=== PATIENT | female | born 1995 | race Caucasian/White ===

== ENCOUNTER 2017-10-31 14:49 | Emergency (ER) | payer BC ==
[~2017-10-31] VITALS: Ht 167.6 cm; Wt 63.5 kg
[2017-10-31] MEDS ORDERED: BUTALB-APAP-CA1 EACH PO (16:06)
[2017-10-31 16:32] VITALS: BP 102/63
== END 2017-10-31 16:32 | disposition home or self-care (01) ==
LOC: M.ERS 14:49
DX: R51 Headache (principal); Z88.0 Allergy status to penicillin; Z88.1 Allergy status to other antibiotic agents

== ENCOUNTER 2020-09-26 19:20 | Emergency (ER) | payer OTHER ==
[~2020-09-26] VITALS: Ht 167.6 cm; Wt 71.2 kg
[~2020-09-26 19:20] MED LIST: BUTALB-APAP-CA1 EACH PO
[2020-09-26 21:28] VITALS: BP 112/80
== END 2020-09-26 21:29 | disposition left against medical advice (07) ==
LOC: M.ERS 19:20
DX: Z53.21 Procedure and treatment not carried out due to patient leaving prior to being seen by health care provider (principal)